=== PATIENT | female | born 1935 | race Caucasian/White ===

== ENCOUNTER 2022-12-11 11:12 | Observation (INO) | payer MEDICARE, SELFPAY ==
[2022-12-11] VITALS (21 sets, daily range): BP systolic 87–126; BP diastolic 41–57; PULSE 58–67; RESP 11–27; TEMP 35.7–36.6; O2SAT 91–100; BMI 19.8
--- NOTE | ~2022-12-11 | US_ITS ---
EXAMINATION: US renal BI DATE: 12/11/2022 14:29 INDICATION: lucila TECHNIQUE: Multiple grayscale and Doppler ultrasound images of the kidneys were obtained. COMPARISON: None. FINDINGS: The right kidney measures 11.7 x 4.0 x 4.7 cm. The left kidney measures 11.5 x 6.1 x 8.0 cm. The kidn eys demonstrate normal parenchymal echogenicity. Multiple simple right renal cysts measuring up to 1. 5 cm There is no hydronephrosis. The bladder is normal. IMPRESSION: Unremarkable renal sonogram findings. Reviewed, dictated and finalized at location K.
--- NOTE | ~2022-12-11 | XR_ITS ---
XR chest 1V portable 12/11/2022 11:56 Indication: Weakness and dizziness Procedure: AP portable chest Comparison: No prior studies for comparison. Findings: Cardiomegaly. There is a pacemaker lead present. No focal air space disease, pulmonary candice a, pleural effusion or suspected pneumothorax. Impression: 1: No acute cardiopulmonary disease. Reviewed, dictated and finalized at location A. Impression: 1: No acute cardiopulmonary disease.
--- NOTE | ~2022-12-11 | CT_ITS ---
EXAMINATION: CT cervical spine wo con DATE: 12/11/2022 12:40 INDICATION: Neck pain TECHNIQUE: Computed tomography (CT) of the cervical spine was performed without intravenous contrast. The dose-length product was 113 mGy-cm. Automated exposure control and iterative reconstruction tech nique were employed. COMPARISON: None FINDINGS: There is degenerative anterolisthesis at C2-3. There is anterior cervical fusion with disce ctomy at C4-7. There is mild degenerative disc disease at C7-T1, T1-T2 3. Odontoid process is normal. There is mild multilevel uncinate and facet hypertrophy. There is apical pleural thickening/scarring . No significant paraspinal soft tissue abnormality. There is carotid atherosclerosis. IMPRESSION: 1. No acute abnormality of the cervical spine. Reviewed, dictated and finalized at location A.
--- NOTE | ~2022-12-11 | CT_ITS ---
EXAMINATION: CT brain wo con DATE: 12/11/2022 12:40 INDICATION: Weakness. TECHNIQUE: Computed tomography (CT) of the head was performed without intravenous contrast. The dose- length product was 605.33 mGy-cm. Automated exposure control and iterative reconstruction technique w ere employed. COMPARISON: None FINDINGS: Mild generalized atrophy. There are scattered mild periventricular and subcortical white ma tter changes, most likely related to small vessel ischemic disease (microangiopathy). No ventriculome veronica or midline shift. There is intracranial atherosclerosis. Paranasal sinuses and mastoids are pneu matized. No depressed skull fractures. IMPRESSION: 1. No acute intracranial abnormality. Reviewed, dictated and finalized at location A.
[2022-12-11] MEDS: SODIUM CHLORIDE 0.9% IV 1,000 ML 999 ML IV CONT (11:08)
--- NOTE | 2022-12-11 11:17 | ECG_ITS ---
Measurements Intervals [place] Rate: 60 P: SC: 0 QRS: 110 QRSD: 142 T: -68 QT: 402 QTc: 402 Interpretive Statements ELECTRONIC VENTRICULAR PACEMAKER BASELINE ARTIFACT- V1-V3 NO FURTHER INTERPRETATION IS POSSIBLE ATYPICAL ECG NO PREVIOUS ECG AVAILABLE FOR COMPARISON Electronically Signed On 12-11-2022 13:07:23 CDT by Naun Bray D.O.
[2022-12-11 12:15] LABS: Basophils Percent Auto 0.4 % (0.2-1.2); Eosinophils Percent Auto 0.9 % (0-4.4); Hematocrit 34.4 % (37.0-47.0); Hemoglobin 11.4 g/dL (12.0-15.0); Immature Granulocyte Absolute 0.02 K/mm3 (0.00-0.031); Immature Granulocyte Percent A 0.4 % (0-0.5); Lymphocytes Absolute Auto 0.78 K/mm3 (0.9-3.2); Lymphocytes Percent Auto 16.9 % (18.3-44.2); Mean Corpuscular HGB Conc 33.1 g/dl (32-36); Mean Corpuscular Hemoglobin 30.3 pg (26-34); Mean Corpuscular Volume 91.5 fl (80-100); Mean Platelet Volume 9.5 fl (7.4-10.4); Monocytes Absolute Auto 0.4 K/mm3 (0.1-0.6); Monocytes Percent Auto 8.9 % (2.6-8.5); Neutrophils Absolute Auto 3.4 K/mm3 (1.3-6.7); Neutrophils Percent Auto 72.5 % (45.5-73.1); Platelet Count Result 124 k/mm3 (150-375); Red Blood Count 3.76 M/mm3 (4.2-5.4); Red Cell Distribution Width 12.1 % (11.5-14.5); White Blood Count 4.6 K/mm3 (4.5-10.0)
[2022-12-11 12:24] LABS: Alanine Aminotransferase 21 U/L (6-35); Albumin Level 3.9 g/dL (3.5-5.1); Alkaline Phosphatase 81 U/L (38-126); Anion Gap 10 mmol/L (8-16); Aspartate Amino Transferase 29 U/L (14-36); Bilirubin,Total 0.5 mg/dL (0.2-1.3); Blood Urea Nitrogen 55 mg/dL (7-17); Calcium 8.4 mg/dL (8.4-10.2); Carbon Dioxide 20 mmol/L (22-30); Chloride 104 mmol/L (98-107); Estimated CRCL calculation 10 ml/min; Estimated Glomerular Filt Rate 14; Glucose 128 mg/dL (65-110); Potassium 4.8 mmol/L (3.4-5.0); Sodium 134 mmol/L (137-145)
[2022-12-11 12:50] LABS: Influenza A QL RT-PCR Negative (Negative); Influenza B QL RT-PCR Negative (Negative); RSV RNA, RT-PCR Negative (Negative); SARS-CoV-2 RNA PCR Negative (Negative)
--- NOTE | 2022-12-11 12:58 | ED.GENADULT ---
HPI - General Adult General Chief complaint: Weakness Stated complaint: weakness History of Present Illness HPI narrative: 87-year-old female presented the emergency department for evaluation after having a near syncopal episode. Family states that the patient was complaining of feeling some nausea and feeling lightheaded while they were out shopping. While patient was ambulating up a ramp she had worsening symptoms. Patient denies the patient having any falls or injuries. Patient states she has been under a lot of stress lately and has not been eating and drinking well. Patient was complaining of some posterior neck pain but denies any falls or injuries. Patient's is currently hospitalized at an outside hospital. Patient has been visiting her daily and family reports that the patient has had decreased p.o. intake. Patient has no prior history of kidney dysfunction. Related Data Home Medications Medication Instructions Recorded Confirmed carvedilol 25 mg tablet 25 mg PO DAILY 12/11/22 12/11/22 colchicine 0.6 mg tablet 0.6 mg PO DAILY 12/11/22 12/11/22 digoxin 125 mcg (0.125 mg) tablet 0.125 mcg PO DAILY 12/11/22 12/11/22 diltiazem HCl 120 mg tablet 120 mg PO DAILY 12/11/22 12/11/22 furosemide 40 mg tablet 40 mg PO DAILY 12/11/22 12/11/22 levothyroxine 200 mcg tablet 200 mcg PO DAILY 12/11/22 12/11/22 rivaroxaban 20 mg tablet (Xarelto) 20 mg PO DAILY 12/11/22 12/11/22 Allergies Allergy/AdvReac Type Severity Reaction Status Date / Time No Known Allergies Allergy Verified 12/11/22 11:16 Review of Systems Review of Systems: All systems reviewed & are unremarkable except as noted in HPI and below [facility] Past Medical History Medical History CHF (congestive heart failure), NYHA class I Hyperlipidemia Murmur Pacemaker Sick sinus syndrome Surgical History Surgical History H/O cataract extraction H/O neck surgery H/O: hysterectomy History of bladder surgery Family History Family History Sibling Heart disease Mother Heart disease Father Cancer Social History Social History (Updated 12/11/22 @ 16:46 by Jud Doss NP) Social History: She lives with her . she has 3 children . she is retired from a factory . her daughter is a durable power road packer operator for healthcare. code status: full code Smoking status: Never smoker Alcohol intake: never Substance use: never Substance use type: does not use Lack of Transportation: No Lack of Food: Never True Current Housing: I Have Housing Concerned About Future Housing: No Difficulty Paying Gas/Electric Bills: No Difficulty Paying for Meds: No Currently Unemployed: No Education: High School Diploma/GED Difficulty w/ Childcare or Family Care: No Spiritual care concerns: Yes Exam Narrative: APPEARANCE: Cachectic and tired appearing HEAD: normocephalic, atraumatic. EYES: PERRLA/EOMI, conjunctivae clear. NOSE: Normal no drainage EARS:TMS clear with good light reflex. THROAT: Pharynx clear, no exudate. NECK: Supple. No adenopathy, no masses. RESPIRATORY: Airway patent, respirations nonlabored. Clear to auscultation bilaterally, no rales, rhonchi, wheezing. CARDIOVASCULAR: Regular rate and rhythm without murmurs rubs or gallops. ABDOMINAL: Soft, nontender, nondistended, normal bowel sounds MUSCULOSKELETAL: Moves all extremities. Strength/ROM intact, No edema, No calf tenderness. NEURO: Alert. Cranial nerves II through XII intact. Good gait. Good coordination SKIN: Warm, dry. Normal Color Course Course Emergency Course: 87-year-old female presented the emergency department for evaluation of increased generalized weakness. Patient was hypotensive upon arrival to the emergency department. Patient was treated with IV fluids and did have an impr
[2022-12-11 13:04] LABS: Digoxin 1.7 ng/mL (0.8-2.0)
--- NOTE | 2022-12-11 13:38 | PM.IMHP ---
H&P: HPI History of Present Illness Date/Time: 12/11/22 13:38 Chief Complaint: Weakness Narrative: this is an 87-year-old female patient who came in to be evaluated for Near syncopal episode. the patient's is it to an outside facility and she has been driving back and forth to take care of him. She has not been eating or drinking very much. The family stated that the patient was complaining of feeling some nausea and feeling lightheaded while they were out shopping. While the patient was ambulating upper [place] she had worsening symptoms. She denied having any falls or injuries. The patient has been under lot of stress lately. The patient was also complaining of some posterior neck pain but denies any falls or injuries. She denies any history of having any kidney disease. Her H&H is 11.4 and 34.4. Platelets are only 124. Sodium 124. BUN is 55 and creatinine 3.2. Glucose 123. The patient is negative for influenza A/B RSV and COVID. The patient did have a renal ultrasound that was read as unremarkable renal sonogram findings. Head CT showed no acute intracranial abnormality. Cervical spine shows no acute abnormality of the cervical spine. Chest x-ray was read as no acute cardiopulmonary disease. The patient was started On IV fluids. The patient is being admitted to observation status on the date of service of 12/11/2022. Review of Systems Review of Systems: All systems reviewed & are unremarkable except as noted in HPI and below Constitutional: Constitutional: Reports as per HPI and Reports no additional constitutional complaints Eyes: Eyes: Reports as per HPI and Reports no additional eye complaints ENT: Reports system reviewed and no additional complaints, except as documented and Reports Normal hearing present Cardiovascular: Cardiovascular: Reports no additional cardiovascular complaints Respiratory: Respiratory: Reports no additional respiratory complaints and Reports no additional respiratory complaints Gastrointestinal: Gastrointestinal: Reports as per HPI and Reports no additional gastrointestinal complaints Musculoskeletal: Musculoskeletal: Reports no additional musculoskeletal complaints Integumentary/Breasts: Skin/Breast: Reports system reviewed and no additional complaints, except as docu and Reports as per HPI Neurologic: Reports system reviewed and no additional complaints, except as documented, Reports as per HPI and Reports Normal hearing present Psychiatric: Psychiatric: Reports no additional psychiatric complaints and Reports as per HPI Endocrine: Endocrine: Reports no additional endocrine complaints Hematologic/Lymphatic: Hematologic/Lymphatic: Reports no additional hematologic/lymphatic complaints Allergic/Immunologic: Allergic/Immunologic: Reports no additional allergic/immunologic complaints [facility] Past Medical History Medical History CHF (congestive heart failure), NYHA class I Hyperlipidemia Murmur Pacemaker Sick sinus syndrome Surgical History Surgical History H/O cataract extraction H/O neck surgery H/O: hysterectomy History of bladder surgery Family History Family History Sibling Heart disease Mother Heart disease Father Cancer Social History Social History (Updated 12/11/22 @ 16:46 by Jud Doss NP) Social History: She lives with her . she has 3 children . 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 code status: full code Smoking status: Never smoker Alcohol intake: never Substance use: never Substance use type: does not use Lack of Transportation: No Lack of Food: Never True Current Housing: I Have Housing Concerned About Future Housing: No Difficulty Paying Gas/Electric Bills: No Difficulty Paying for Meds: N
[2022-12-11 14:44] LABS: Appearance Urine Clear (Clear); Bacteria Urine 4+ /hpf; Bilirubin Urine Negative (Negative); Blood Urine Negative (Negative); Color Urine Yellow (Yellow); Glucose Urine UA Negative (Negative); Ketones Urine Negative (Negative); Leukocyte Esterase Ur Trace LEU/UL (Negative); Nitrate Urine Negative (Negative); Protein Urine Negative (Negative); RBC Urine 0-2 /hpf (0-2); Specific Grav Ur 1.007 (1.001-1.035); Squamous Epithelial Cell Urine None seen /hpf (Few); Urobilinogen Urine 0.2 mg/dL (<2.0); WBC Urine 0-5 /hpf
[2022-12-11 14:46] LABS: Add Urine Microscopic? YES
[2022-12-11] MEDS: SODIUM CHLORIDE 0.9% IV 1,000 ML 100 ML IV CONT (14:55)
--- NOTE | 2022-12-11 18:21 | PC.NURSE ---
1759 Admission Note: arrivsl at 1510 The patient,Emi Chaidez,87 y/o, was given written information regarding hospital policies, unit procedures and contact persons. Patient's smoking status: Never smoker.
[2022-12-11 20:41] LABS: Alanine Aminotransferase 20 U/L (6-35); Albumin Level 3.8 g/dL (3.5-5.1); Alkaline Phosphatase 80 U/L (38-126); Aspartate Amino Transferase 29 U/L (14-36); Bilirubin,Total 0.4 mg/dL (0.2-1.3); Phosphorus 4.7 mg/dL (2.5-4.5)
[2022-12-11 20:48] LABS: Complement C3 72 mg/dL (88-165)
[2022-12-11 20:49] LABS: Anion Gap 8 mmol/L (8-16); Blood Urea Nitrogen 54 mg/dL (7-17); Calcium 8.3 mg/dL (8.4-10.2); Carbon Dioxide 22 mmol/L (22-30); Chloride 106 mmol/L (98-107); Estimated CRCL calculation 11 ml/min; Estimated Glomerular Filt Rate 15; Glucose 155 mg/dL (65-110); Potassium 4.2 mmol/L (3.4-5.0); Sodium 136 mmol/L (137-145)
[2022-12-11 21:05] LABS: Erythrocyte Sedimentation Rate 25 mm/hr (0-20)
[2022-12-11 21:20] LABS: HIV 1/2 Ab P24 Ag Result Negative (Negative)
[2022-12-11 22:52] LABS: Hepatitis B Core IgM Result Negative (Negative); Hepatitis B Surface Antigen Negative (Negative)
[2022-12-11 22:56] LABS: Hepatitis B Surface Anti Res Negative
[2022-12-12] VITALS (10 sets, daily range): BP systolic 114–126; BP diastolic 46–66; PULSE 80–103; RESP 14–20; TEMP 36.3–36.9; O2SAT 95–99
[2022-12-12 00:49] LABS: Hepatitis C Virus Antibody Negative (Negative)
[2022-12-12 00:54] LABS: Creatinine Urine 67.4 mg/dL; Total Protein Urine Random 19 mg/dL; Ur Ttl Prot Creatinine Ratio 0.28 mg/mg (0-0.20)
[2022-12-12 01:04] LABS: Potassium Urine Random 26.7 meq/L; Sodium Urine Random 29 meq/L
[2022-12-12 02:10] LABS: Eosinophil Urine None Seen % (None Seen)
[2022-12-12] MEDS: LEVOTHYROXINE SODIUM 100 MCG TABLET 200 MCG PO (06:13)
[2022-12-12 06:27] LABS: Basophils Percent Auto 0.3 % (0.2-1.2); Eosinophils Absolute Auto 0.1 K/mm3 (0-0.3); Eosinophils Percent Auto 1.5 % (0-4.4); Hematocrit 32.8 % (37.0-47.0); Hemoglobin 10.7 g/dL (12.0-15.0); Immature Granulocyte Absolute 0.01 K/mm3 (0.00-0.031); Immature Granulocyte Percent A 0.2 % (0-0.5); Lymphocytes Absolute Auto 1.57 K/mm3 (0.9-3.2); Lymphocytes Percent Auto 26.8 % (18.3-44.2); Mean Corpuscular HGB Conc 32.6 g/dl (32-36); Mean Corpuscular Hemoglobin 29.9 pg (26-34); Mean Corpuscular Volume 91.6 fl (80-100); Monocytes Absolute Auto 0.7 K/mm3 (0.1-0.6); Monocytes Percent Auto 11.5 % (2.6-8.5); Neutrophils Absolute Auto 3.5 K/mm3 (1.3-6.7); Neutrophils Percent Auto 59.7 % (45.5-73.1); Platelet Count Result 132 k/mm3 (150-375); Red Blood Count 3.58 M/mm3 (4.2-5.4); Red Cell Distribution Width 12.2 % (11.5-14.5); White Blood Count 5.9 K/mm3 (4.5-10.0)
[2022-12-12 06:34] LABS: Lactic Acid Reflex 0.6 mmol/L (0.7-2.0)
[2022-12-12 06:38] LABS: Urine Eos QC 2nd Tech Confirmed
[2022-12-12 06:40] LABS: Alanine Aminotransferase 19 U/L (6-35); Albumin Level 3.8 g/dL (3.5-5.1); Alkaline Phosphatase 75 U/L (38-126); Anion Gap 8 mmol/L (8-16); Aspartate Amino Transferase 28 U/L (14-36); Bilirubin,Total 0.5 mg/dL (0.2-1.3); Blood Urea Nitrogen 47 mg/dL (7-17); Calcium 8.6 mg/dL (8.4-10.2); Carbon Dioxide 23 mmol/L (22-30); Chloride 108 mmol/L (98-107); Estimated CRCL calculation 13 ml/min; Estimated Glomerular Filt Rate 17; Glucose 83 mg/dL (65-110); Magnesium 1.9 mg/dL (1.6-2.3); Sodium 139 mmol/L (137-145)
[2022-12-12 07:46] LABS: Thyroid Stimulating Hormone Reflex 0.027 uIU/mL (0.465-4.68)
[2022-12-12] MEDS: SODIUM CHLORIDE 0.9% IV 1,000 ML 50 ML IV CONT (08:41)
--- NOTE | 2022-12-12 13:03 | P.PNIM_ITS ---
Progress Note: A&P Assessment and Plan (1) Near syncope: Code(s): R55 - Syncope and collapse Status: Acute Assessment and Plan: * Admits to having some dizziness * Renal function does indicate dehydration * Echo is ordered * Interrogate pacemaker * Head ct stable * Continue IV fluids for now * Orthostatic blood pressures ordered (2) EAMON (acute kidney injury): Code(s): N17.9 - Acute kidney failure, unspecified Status: Acute Assessment and Plan: * BUN/Cr upon arrival was 55/3.2 * Currently 47/2.60 * Unknown baseline * Fena Score is 0.8 indicating pre-renal disease * Continue hydration, as this seems to be more related to dehydration * Increase fluids to 75ml/hr * Trend labs * renal adjust medications (3) Murmur: Code(s): R01.1 - Cardiac murmur, unspecified Status: Acute Assessment and Plan: * Noted upon auscultation * Echo is ordered with bubble * Most likely chronic (4) Hyperlipidemia: Qualifiers: Hyperlipidemia type: mixed hyperlipidemia Qualified Code(s): E78.2 - Mixed hyperlipidemia Code(s): E78.5 - Hyperlipidemia, unspecified Status: Acute Assessment and Plan: * Continue home Rosuvastatin 10mg PO Daily * Lipid panel ordered for the am (5) CHF (congestive heart failure), NYHA class I: Qualifiers: Congestive heart failure type: diastolic Congestive heart failure chronicity: chronic Qualified Code(s): I50.32 - Chronic diastolic (congestive) heart failure Code(s): I50.9 - Heart failure, unspecified Status: Acute Assessment and Plan: * Most likely chronic diastolic heart failure not in acute exacerbation * Echo ordered * trend urine output * Daily weights * Most likely dehydrated * lasix on hold (6) Afib: Qualifiers: Atrial fibrillation type: unspecified chronic Qualified Code(s): I48.20 - Chronic atrial fibrillation, unspecified Code(s): I48.91 - Unspecified atrial fibrillation Status: Acute Assessment and Plan: * Chronic afib * Continue aspirin, carvedilol, Xarelto, Cardizem, and digoxin * Currently has a pace maker, will interrogate * HR is stable at this time * Echo ordered (7) Severe protein-calorie malnutrition: Code(s): E43 - Unspecified severe protein-calorie malnutrition Status: Acute Assessment and Plan: * Lost 48 lbs in 9 months * Misses many meals * No appetite noted * school custodian consulted (8) Hypothyroidism: Qualifiers: Hypothyroidism type: acquired Qualified Code(s): E03.9 - Hypothyroidism, unspecified Code(s): E03.9 - Hypothyroidism, unspecified Status: Acute Assessment and Plan: * TSH 0.027, T4 pending * Continue levothyroxine for now Plan Chest pain Trop ordered CXR no acute cardiopulmonary process BNP in the am EKG Rate of 60 ventricular pacemaker Interrogate pacer Echo in the am Time Spent With Patient Time: 53 minutes Time with patient: Greater than 35 minutes Subjective Date/time seen: 12/12/22 104 Interval history: 12/12/221044 Patient was lying in bed. Patient is daughter was also p
--- NOTE | 2022-12-12 13:03 | PM.IMPN ---
Progress Note: A&P Assessment and Plan (1) Near syncope: Code(s): R55 - Syncope and collapse Status: Acute Assessment and Plan: Admits to having some dizziness Renal function does indicate dehydration Echo is ordered Interrogate pacemaker Head ct stable Continue IV fluids for now Orthostatic blood pressures ordered (2) EAMON (acute kidney injury): Code(s): N17.9 - Acute kidney failure, unspecified Status: Acute Assessment and Plan: BUN/Cr upon arrival was 55/3.2 Currently 47/2.60 Unknown baseline Fena Score is 0.8 indicating pre-renal disease Continue hydration, as this seems to be more related to dehydration Increase fluids to 75ml/hr Trend labs renal adjust medications (3) Murmur: Code(s): R01.1 - Cardiac murmur, unspecified Status: Acute Assessment and Plan: Noted upon auscultation Echo is ordered with bubble Most likely chronic (4) Hyperlipidemia: Qualifiers: Hyperlipidemia type: mixed hyperlipidemia Qualified Code(s): E78.2 - Mixed hyperlipidemia Code(s): E78.5 - Hyperlipidemia, unspecified Status: Acute Assessment and Plan: Continue home Rosuvastatin 10mg PO Daily Lipid panel ordered for the am (5) CHF (congestive heart failure), NYHA class I: Qualifiers: Congestive heart failure type: diastolic Congestive heart failure chronicity: chronic Qualified Code(s): I50.32 - Chronic diastolic (congestive) heart failure Code(s): I50.9 - Heart failure, unspecified Status: Acute Assessment and Plan: Most likely chronic diastolic heart failure not in acute exacerbation Echo ordered trend urine output Daily weights Most likely dehydrated lasix on hold (6) Afib: Qualifiers: Atrial fibrillation type: unspecified chronic Qualified Code(s): I48.20 - Chronic atrial fibrillation, unspecified Code(s): I48.91 - Unspecified atrial fibrillation Status: Acute Assessment and Plan: Chronic afib Continue aspirin, carvedilol, Xarelto, Cardizem, and digoxin Currently has a pace maker, will interrogate HR is stable at this time Echo ordered (7) Severe protein-calorie malnutrition: Code(s): E43 - Unspecified severe protein-calorie malnutrition Status: Acute Assessment and Plan: Lost 48 lbs in 9 months Misses many meals No appetite noted customer services supervisor consulted (8) Hypothyroidism: Qualifiers: Hypothyroidism type: acquired Qualified Code(s): E03.9 - Hypothyroidism, unspecified Code(s): E03.9 - Hypothyroidism, unspecified Status: Acute Assessment and Plan: TSH 0.027, T4 pending Continue levothyroxine for now Plan Chest pain Trop ordered CXR no acute cardiopulmonary process BNP in the am EKG Rate of 60 ventricular pacemaker Interrogate pacer Echo in the am Time Spent With Patient Time: 53 minutes Time with patient: Greater than 35 minutes Subjective Date/time seen: 12/12/221044 Interval history: 12/12/221044 Patient was lying in bed. Patient is daughter was also present. Patient states that she feels okay. Was getting more information it was stated that the patient has been having some lightheadedness and dizziness. She also stated that she has been having a little bit of chest pain mostly in the lower epigastric area. When she does get the chest pain she does know she is little short of breath. She also been having episodes of cold and clammy sweats. Her neck is been hurting her lately and currently still hurting. She also had a fall recently that left her with some pain in the right hip. It was mentioned that she does not drink or eat a lot. She has lost roughly 48 lb over the last 9 months. On a side note the patient's is very ill an
[2022-12-12] MEDS: DIGOXIN TAB 125 MCG TABLET PO ×2 (13:06→20:14)
[2022-12-12 14:19] LABS: Cholesterol 82 mg/dL (0-200); HDL Direct 38 mg/dL; Triglycerides 104 mg/dL (<150)
--- NOTE | 2022-12-12 14:21 | PC.NURSE ---
Patient's [employer] Pacemaker card photocopied and placed in chart. Reads P/G Model Number [id number], Serial- [id number], Implant Date . Cassandra Potter
[2022-12-12 14:29] LABS: Free T4 Free Thyroxine Reflex 2.86 ng/dL (0.78-2.19)
[2022-12-12 14:30] LABS: LDL Cholesterol Direct 34 mg/dL
[2022-12-12 14:33] LABS: Troponin I < 0.012 ng/mL (0.000-0.034)
[2022-12-12] MEDS: carvediloL 25 MG TABLET PO (16:58)
[2022-12-12] MEDS: RIVAROXABAN 10 MG TABLET PO (16:59)
[2022-12-12] MEDS: dilTIAZem HCL 60 MG TABLET 120 MG PO (20:13)
--- NOTE | 2022-12-13 | ECHO_ITS ---
Patient Info Name: Emi Chaidez Age: 87 years : 1935 Gender: Female Ht: 66 in Wt: 123 lbs BSA: 1.61 m2 HR: 60 bpm BP: 140 / 66 mmHg Heart Rhythm: Paced Technical Quality: Good Exam Date: 12/13/2022 1:08 PM Exam Location: [facility] Patient Status: Outpatient Admit Date: 12/11/2022 Staff Ordering Physician: Edmundo Huff Siphon Operator: Cassandra Fernandez RDCS Attending Provider: Piedad Cabello DO Referring Physician: Refugio BAEZA; Exam Type: CA echo doppler w bubble study Study Info Indications R55 - Syncope and collapse Complete two-dimensional, color flow and Doppler transthoracic echocardiogram is performed with agitated saline. Contrast/Agitated Saline Contrast/Ag. Saline: Agitated Saline Amount: 20.00 ml Administered By: Suha Jerome Existing IV Access: Yes IV Access Condition: patent with no signs of infiltration Summary 1. Normal left ventricular size and systolic function. 2. Permanent pacemaker lead noted/paced rhythm. 3. Severe biatrial dilation. 4. Small amount of mitral and tricuspid valve regurgitation. 5. Agitated saline contrast injection demonstrates no intracardiac shunt. Left Ventricle Left ventricular chamber dimension is normal. Left ventricular systolic function is normal, estimated at 55-60%. The left ventricular diastolic function is indeterminate. Right Ventricle Right ventricular chamber dimension is mildly enlarged. Linear artifact in right ventricle suggestive of catheter(s), pacemaker lead(s), or ICD lead(s). Left Atria Left atrial chamber dimension is severely enlarged. Right Atria Right atrial chamber dimension is severely enlarged. Linear artifact in the right atrium suggestive of catheter(s), pacemaker lead(s), or ICD lead(s). Atrial Septum Intact interatrial septum visualized by agitated saline imaging. Aortic Valve The aortic valve is trileaflet. There is mild aortic valve sclerosis. There is mild aortic valve stenosis with a peak velocity of 228.52 cm/s, mean gradient of 12 mmHg, and aortic valve area of 1.69 cm2. Pulmonic Valve The pulmonic valve is normal. Mitral Valve The mitral valve has normal leaflets. There is trace mitral valve regurgitation. Tricuspid Valve The tricuspid valve leaflets are normal. There is mild tricuspid valve regurgitation. Pericardium/Pleural The pericardium appears normal. Aorta The aortic root size at the sinus of Valsalva is normal. Left Ventricular Outflow Tract Name Value Normal LVOT 2D LVOT Diameter 1.98 cm LVOT Doppler LVOT Peak Gradient 2 mmHg LVOT Mean Gradient 1 mmHg LVOT VTI 26.93 cm LVOT VTI/AV VTI Ratio 0.55 LVOT Stroke Volume 82.51 ml LVOT CO 2.97 l/min LVOT CI 1.85 L/min/m2 Pulmonic Valve Name Value Normal RVOT Doppler
[2022-12-13] MEDS: SODIUM CHLORIDE 0.9% IV 1,000 ML 75 ML IV CONT (02:15)
[2022-12-13 05:34] VITALS: BP 140/66; PULSE 86; RESP 14; TEMP 36.6; O2SAT 98
[2022-12-13] MEDS: LEVOTHYROXINE SODIUM 100 MCG TABLET 200 MCG PO (06:12)
[2022-12-13 07:01] LABS: Basophils Percent Auto 0.4 % (0.2-1.2); Eosinophils Absolute Auto 0.1 K/mm3 (0-0.3); Eosinophils Percent Auto 1.9 % (0-4.4); Hematocrit 33.1 % (37.0-47.0); Hemoglobin 10.7 g/dL (12.0-15.0); Immature Granulocyte Absolute 0.01 K/mm3 (0.00-0.031); Immature Granulocyte Percent A 0.2 % (0-0.5); Immature Platelet Fraction Pct 2.3 % (0.9-11.2); Lymphocytes Absolute Auto 1.32 K/mm3 (0.9-3.2); Lymphocytes Percent Auto 24.8 % (18.3-44.2); Mean Corpuscular HGB Conc 32.3 g/dl (32-36); Mean Corpuscular Hemoglobin 30.1 pg (26-34); Mean Corpuscular Volume 93.2 fl (80-100); Mean Platelet Volume 9.9 fl (7.4-10.4); Monocytes Absolute Auto 0.6 K/mm3 (0.1-0.6); Monocytes Percent Auto 10.5 % (2.6-8.5); Neutrophils Absolute Auto 3.3 K/mm3 (1.3-6.7); Neutrophils Percent Auto 62.2 % (45.5-73.1); Platelet Count Result 136 k/mm3 (150-375); Red Blood Count 3.55 M/mm3 (4.2-5.4); Red Cell Distribution Width 12.3 % (11.5-14.5); White Blood Count 5.3 K/mm3 (4.5-10.0)
[2022-12-13 07:17] LABS: Alanine Aminotransferase 19 U/L (6-35); Albumin Level 3.6 g/dL (3.5-5.1); Alkaline Phosphatase 61 U/L (38-126); Anion Gap 6 mmol/L (8-16); Aspartate Amino Transferase 26 U/L (14-36); Bilirubin,Total 0.6 mg/dL (0.2-1.3); Blood Urea Nitrogen 32 mg/dL (7-17); Calcium 8.7 mg/dL (8.4-10.2); Carbon Dioxide 24 mmol/L (22-30); Chloride 111 mmol/L (98-107); Estimated CRCL calculation 22 ml/min; Estimated Glomerular Filt Rate 33; Glucose 85 mg/dL (65-110); Magnesium 1.6 mg/dL (1.6-2.3); Potassium 3.7 mmol/L (3.4-5.0); Sodium 141 mmol/L (137-145)
[2022-12-13 08:00] VITALS: BP 140/66; PULSE 78; RESP 14; TEMP 36.6; O2SAT 98
[2022-12-13 08:33] VITALS: PULSE 78
[2022-12-13] MEDS: DIGOXIN TAB 125 MCG TABLET PO (08:33)
[2022-12-13] MEDS: dilTIAZem HCL 60 MG TABLET 120 MG PO (08:33)
[2022-12-13] MEDS: PANTOPRAZOLE 40 MG TABLET PO (08:33)
[2022-12-13] MEDS: carvediloL 25 MG TABLET PO (08:33)
[2022-12-13] MEDS: MAGNESIUM SULF 4 GM/WATER100ML 4 GM/100 ML BAG IVPB (10:36)
[2022-12-13] MEDS: ROSUVASTATIN 10 MG TABLET PO (10:38)
[2022-12-13] MEDS: COLCHICINE 0.6 MG TABLET PO (10:38)
--- NOTE | 2022-12-13 11:00 | PM.DS ---
DS: Admitting Diagnosis Discharge Date 12/13/22 1100 Admitting Diagnosis Acute UTI, syncope DS: Discharge Diagnosis Discharge Diagnosis (1) Near syncope: Code(s): R55 - Syncope and collapse Status: Acute Assessment and Plan: Admits to having some dizziness Renal function does indicate dehydration Echo is ordered Interrogate pacemaker Head ct stable Continue IV fluids for now Orthostatic blood pressures ordered (2) EAMON (acute kidney injury): Code(s): N17.9 - Acute kidney failure, unspecified Status: Acute Assessment and Plan: BUN/Cr upon arrival was 55/3.2 Currently 32/1.50 Unknown baseline Fena Score is 0.8 indicating pre-renal disease Continue hydration, as this seems to be more related to dehydration Increase fluids to 75ml/hr Trend labs renal adjust medications (3) Murmur: Code(s): R01.1 - Cardiac murmur, unspecified Status: Acute Assessment and Plan: Noted upon auscultation Echo is ordered with bubble Most likely chronic (4) Hyperlipidemia: Qualifiers: Hyperlipidemia type: mixed hyperlipidemia Qualified Code(s): E78.2 - Mixed hyperlipidemia Code(s): E78.5 - Hyperlipidemia, unspecified Status: Acute Assessment and Plan: Continue home Rosuvastatin 10mg PO Daily Lipid panel cholesterol 82, LDL 34, HDL 38, Triglycerides 104 (5) CHF (congestive heart failure), NYHA class I: Qualifiers: Congestive heart failure chronicity: chronic Congestive heart failure type: diastolic Qualified Code(s): I50.32 - Chronic diastolic (congestive) heart failure Code(s): I50.9 - Heart failure, unspecified Status: Acute Assessment and Plan: Most likely chronic diastolic heart failure not in acute exacerbation Echo ordered trend urine output Daily weights Most likely dehydrated lasix on hold (6) Afib: Qualifiers: Atrial fibrillation type: unspecified chronic Qualified Code(s): I48.20 - Chronic atrial fibrillation, unspecified Code(s): I48.91 - Unspecified atrial fibrillation Status: Acute Assessment and Plan: Chronic afib Continue aspirin, carvedilol, Xarelto, Cardizem, and digoxin Currently has a pace maker, will interrogate 3 years left on the pacemaker HR is stable at this time Echo ordered (7) Severe protein-calorie malnutrition: Code(s): E43 - Unspecified severe protein-calorie malnutrition Status: Acute Assessment and Plan: Lost 48 lbs in 9 months Misses many meals No appetite noted parts specialist consulted (8) Hypothyroidism: Qualifiers: Hypothyroidism type: acquired Qualified Code(s): E03.9 - Hypothyroidism, unspecified Code(s): E03.9 - Hypothyroidism, unspecified Status: Acute Assessment and Plan: TSH 0.027, T4 2.86 Continue levothyroxine for now (9) Acute urinary tract infection: Code(s): N39.0 - Urinary tract infection, site not specified Status: Acute Assessment and Plan: Urine culture grew Ecoli Started and continue cefdinir Trend urine output Plan Chest pain Trop <0.012 CXR no acute cardiopulmonary process EKG Rate of 60 ventricular pacemaker Interrogate pacer Echo ordered DS: Summary Hospital Course Hospital Course: patient is an 87-year-old female with a past medical history of congestive heart failure, AFib, hyperlipidemia who presented to the ED with complaints of syncope. According to the daughter the patient was in the wheelchair and she slumped over and was unable to communicate with her and became very unresponsive. Upon arrival patient was noted to have EAMON with a creatinine is 3.20. Venous or did indicate pre renal disease and patient was given IV fluids. Currently creatinine is 1
--- NOTE | 2022-12-13 11:00 | P.DS_ITS ---
DS: Admitting Diagnosis Discharge Date 12/13/22 1100 Admitting Diagnosis Acute UTI, syncope DS: Discharge Diagnosis Discharge Diagnosis (1) Near syncope: Code(s): R55 - Syncope and collapse Status: Acute Assessment and Plan: * Admits to having some dizziness * Renal function does indicate dehydration * Echo is ordered * Interrogate pacemaker * Head ct stable * Continue IV fluids for now * Orthostatic blood pressures ordered (2) EAMON (acute kidney injury): Code(s): N17.9 - Acute kidney failure, unspecified Status: Acute Assessment and Plan: * BUN/Cr upon arrival was 55/3.2 * Currently 32/1.50 * Unknown baseline * Fena Score is 0.8 indicating pre-renal disease * Continue hydration, as this seems to be more related to dehydration * Increase fluids to 75ml/hr * Trend labs * renal adjust medications (3) Murmur: Code(s): R01.1 - Cardiac murmur, unspecified Status: Acute Assessment and Plan: * Noted upon auscultation * Echo is ordered with bubble * Most likely chronic (4) Hyperlipidemia: Qualifiers: Hyperlipidemia type: mixed hyperlipidemia Qualified Code(s): E78.2 - Mixed hyperlipidemia Code(s): E78.5 - Hyperlipidemia, unspecified Status: Acute Assessment and Plan: * Continue home Rosuvastatin 10mg PO Daily * Lipid panel cholesterol 82, LDL 34, HDL 38, Triglycerides 104 (5) CHF (congestive heart failure), NYHA class I: Qualifiers: Congestive heart failure chronicity: chronic Congestive heart failure type: diastolic Qualified Code(s): I50.32 - Chronic diastolic (congestive) heart failure Code(s): I50.9 - Heart failure, unspecified Status: Acute Assessment and Plan: * Most likely chronic diastolic heart failure not in acute exacerbation * Echo ordered * trend urine output * Daily weights * Most likely dehydrated * lasix on hold (6) Afib: Qualifiers: Atrial fibrillation type: unspecified chronic Qualified Code(s): I48.20 - Chronic atrial fibrillation, unspecified Code(s): I48.91 - Unspecified atrial fibrillation Status: Acute Assessment and Plan: * Chronic afib * Continue aspirin, carvedilol, Xarelto, Cardizem, and digoxin * Currently has a pace maker, will interrogate 3 years left on the pacemaker * HR is stable at this time * Echo ordered (7) Severe protein-calorie malnutrition: Code(s): E43 - Unspecified severe protein-calorie malnutrition Status: Acute Assessment and Plan: * Lost 48 lbs in 9 months * Misses many meals * No appetite noted * casing cooker consulted (8) Hypothyroidism: Qualifiers: Hypothyroidism type: acquired Qualified Code(s): E03.9 - Hypothyroidism, unspecified Code(s): E03.9 - Hypothyroidism, unspecified Status: Acute Assessment and Plan: * TSH 0.027, T4 2.86 * Continue levothyroxine for now (9) Acute urinary tract infection: Code(s): N39.0 - Urinary tract infection, site not specified Status: Acute Assessment and Plan: * Urine culture grew Ecoli * Started and continue cefdinir * Trend urine outpu
[2022-12-13] MEDS: CEFDINIR 300 MG CAPSULE PO (13:58)
[2022-12-13 14:30] VITALS: BP 114/54; PULSE 60; RESP 16; TEMP 35.8; O2SAT 100
[2022-12-13 14:33] VITALS: BP 116/54
[2022-12-13 14:36] VITALS: BP 107/50
[2022-12-15 15:42] LABS: Osmolality, Urine 287 mOsm/kg (50-1200)
[2022-12-16 17:03] LABS: Anti Glomerular Basement Memb <1.0 AI (<1.0)
[2022-12-16 17:28] LABS: Complement Total CH50 52 U/mL (31-60)
[2022-12-17 19:38] LABS: SM Antibody <1.0; SM/RNP Antibody <1.0
[2022-12-18 02:12] LABS: Creatinine, Random Urine 68 mg/dL (20-275); Total Protein/Creatinine Ratio 250 mg/g creat (24-184)
[2022-12-20 11:51] LABS: Strep DNASE B Antibody <95 U/mL (<301)
[2022-12-20 13:53] LABS: ANCA Screen Negative (Negative)
[2022-12-21 15:43] LABS: Chloride Rand Ur 38 mmol/L (32-290); Chloride/Creatinine Rand Ur 60 (38-318); Creatinine Random Urine 63 mg/dL (20-275)
[2022-12-22 06:20] LABS: Anti Nuclear Antibody Pattern Nuclear, Speckled; Anti Nuclear Antibody Titer 1:40 (Negative)
== END 2022-12-13 14:55 | disposition home or self-care (01) ==
LOC: ANHED 13:19 → ANH3MEDSUR 14:27
PROVIDERS: Nurse Practitioner; Admitting Provider Student in an Organized Health Care Education/Training Program; Emergency Provider Emergency Medicine; Visit Provider Student in an Organized Health Care Education/Training Program
DX: R55 Syncope and collapse (principal); N17.9 Acute kidney failure, unspecified; R01.1 Cardiac murmur, unspecified; E78.5 Hyperlipidemia, unspecified; I50.32 Chronic diastolic (congestive) heart failure; I48.91 Unspecified atrial fibrillation; Z11.4 Encounter for screening for human immunodeficiency virus [HIV]; E03.9 Hypothyroidism, unspecified; E43 Unspecified severe protein-calorie malnutrition; Z68.1 Body mass index [BMI] 19.9 or less, adult; N39.0 Urinary tract infection, site not specified; Z20.822 Contact with and (suspected) exposure to COVID-19; B96.20 Unspecified Escherichia coli [E. coli] as the cause of diseases classified elsewhere; E86.0 Dehydration; R11.0 Nausea; R53.1 Weakness; R42 Dizziness and giddiness; M54.2 Cervicalgia; D64.9 Anemia, unspecified; I08.3 Combined rheumatic disorders of mitral, aortic and tricuspid valves; D69.6 Thrombocytopenia, unspecified; Z63.79 Other stressful life events affecting family and household; E87.1 Hypo-osmolality and hyponatremia; Z95.0 Presence of cardiac pacemaker; R79.89 Other specified abnormal findings of blood chemistry; Z79.01 Long term (current) use of anticoagulants; Z79.899 Other long term (current) drug therapy
CPT/HCPCS: 36415; 70450; 71045; 72125; 76775; 80048; 80053; 80061; 80076; 80162; 81001; 82436; 82570; 82595; 83520; 83605; 83735; 83930; 83935; 84100; 84133; 84156; 84166; 84300; 84439; 84443; 84484; 85025; 85055; 85652; 85999; 86036; 86038; 86039; 86160; 86162; 86215; 86225; 86235; 86334; 86703; 86705; 86706; 86803; 87077; 87086; 87186; 87340; 87637; 93005; 93306; 96361; 96374; 96375; 97161; 97165; 99285; A9270; G0378; G0432; J3475; J7030